=== PATIENT | female | born 1970 ===

== ENCOUNTER 2017-02-20 14:09 | Emergency (ER) | payer OTHER ==
[2017-02-20 14:15] VITALS: BP 118/82; PULSE 67; RESP 18; TEMP 97.8; O2SAT 100
--- NOTE | 2017-02-20 14:37 | C.PDOC ---
History Of Present Illness 47 year old female presents to ED with complaints of sore throat and right ear pain recurrent episodes for 4-5 months. She states she has been to her doctor who usually gives her antibiotics. She states symptoms always return. She denies any difficulty swallowing, fever, cough, chest pain or shortness of breath. Time Seen by Provider: 02/20/17 14:28 Chief Complaint (Nursing): ENT Problem History Per: Patient History/Exam Limitations: None Onset/Duration Of Symptoms: Intermittent Episodes (months) Current Symptoms Are (Timing): Still Present Past Medical History Reviewed: Historical Data, Nursing Documentation, Vital Signs Vital Signs: Last Vital Signs Temp 97.8 F 02/20/17 14:12 Pulse 67 02/20/17 14:12 Resp 18 02/20/17 14:12 BP 118/82 02/20/17 14:12 Pulse Ox 100 02/20/17 14:37 - Medical History PMH: Anemia Surgical History: Cholecystectomy Family History: States: Unknown Family Hx - Social History Hx Alcohol Use: No Hx Substance Use: No - Immunization History Hx Tetanus Toxoid Vaccination: No Hx Influenza Vaccination: Yes Hx Pneumococcal Vaccination: No Review Of Systems Except As Marked, All Systems Reviewed And Found Negative. Physical Exam - Physical Exam Appears: Well, Non-toxic, No Acute Distress Skin: Warm, Dry, No Rash Head: Atraumatic, Normacephalic Eye(s): bilateral: Normal Inspection, EOMI Ear(s): Bilateral: Normal (no erythema) Nose: Normal Oral Mucosa: Moist Tongue: Normal Appearing Lips: Normal Appearing Teeth: Normal Dentition Gingiva: Normal Appearing Throat: Erythema (mild cobblestone injection to posterior pharynx), No Exudate, No Drooling, No Mass Neck: Normal ROM Chest: Symmetrical Cardiovascular: Rhythm Regular, No Murmur Respiratory: Normal Breath Sounds, No Wheezing Extremity: Bilateral: Atraumatic, Normal Color And Temperature, Normal ROM Neurological/Psych: Oriented x3, Normal Speech Gait: Steady ED Course And Treatment O2 Sat by Pulse Oximetry: 100 (room air) Pulse Ox Interpretation: Normal Medical Decision Making Medical Decision Makin47 year old female with throat pain recurrent for months. Throat exam shows mild cobblestone injection, no exudates, uvula midline. Patient afebrile and in no distress. No clinical signs of strep pharyngitis. I explained to patient she does not need antibiotics. I recommend antihistamine such as Zyrtec or Claritin which can help if she is having postnasal drip and causing irritation to throat. I also advised ENT specialty follow up. Disposition Counseled Patient/Family Regarding: Diagnosis, Need For Followup, Rx Given - Disposition Referrals: Delbert Robbins MD [Staff Provider] - Disposition: HOME/ ROUTINE Disposition Time: 14:36 Condition: GOOD Additional Instructions: Por favor, pruebe pastillas para ayudar con el dolor de [place] un seguimiento con ENT para kp evaluacin adicional Prescriptions: Benzocaine/Menthol [Cepacol Sore Throat] 1 lesly MM Q2 #30 lesly Instructions: Benzocaine/Menthol (By mouth) Forms: [email or web address] (Latvian) Print Language: ROMANIAN - POA Present On Arrival: None - Clinical Impression Clinical Impression: Throat pain in adult
== END 2017-02-20 14:48 | disposition home or self-care (01) ==
LOC: EDBD 14:09 → C.ER 14:09
DX: R07.0 Pain in throat (principal)